=== PATIENT | female | born 1940 | race Hispanic/Latino ===

== ENCOUNTER → 2020-05-22 | Outpatient (RCR) | payer MEDICARE | LOC: PT 05-02 14:48 | PROVIDERS: ATTEND Specialist | DX: M25.562 Pain in left knee (principal); M17.12 Unilateral primary osteoarthritis, left knee ==

== ENCOUNTER 2020-06-15 09:00 | Outpatient (RCR) | payer MEDICARE | END 2020-06-21 | LOC: PT 09:00 | PROVIDERS: ATTEND Specialist | DX: M25.562 Pain in left knee (principal); M17.12 Unilateral primary osteoarthritis, left knee; R26.2 Difficulty in walking, not elsewhere classified | CPT/HCPCS: 97139 ==

== ENCOUNTER 2020-07-04 11:00 | Outpatient (RCR) | payer MEDICARE | END 2020-07-22 | LOC: PT 11:00 | PROVIDERS: ATTEND Specialist | DX: M25.562 Pain in left knee (principal); M17.12 Unilateral primary osteoarthritis, left knee; M62.81 Muscle weakness (generalized); R26.2 Difficulty in walking, not elsewhere classified | CPT/HCPCS: 97139 ==

== ENCOUNTER → 2022-06-25 | Day surgery (SDC) | payer MEDICARE ==
[2022-06-21 09:57] LABS: BASOPHILS # (AUTO) 0.1 (0.0-0.1); BASOPHILS % 0.6 % (0.0-1.0); EOSINOPHILS # (AUTO) 0.2 (0.0-0.4); EOSINOPHILS % 2.7 % (0.0-6.0); HEMATOCRIT 40.7 % (34.2-44.1); LYMPHOCYTES % 22.6 % (18.0-39.1); MEAN CORPUSCULAR HEMOGLOBIN 28.8 pg (28-32); MEAN CORPUSCULAR HGB CONC 29.5 g/dL (31-35); MEAN CORPUSCULAR VOLUME 97.6 fL (81-99); MONOCYTES # (AUTO) 0.8 (0.2-0.8); MONOCYTES % 8.5 % (4.4-11.3); NEUTROPHILS # (AUTO) 5.8 (2.1-6.9); NEUTROPHILS % 65.2 % (38.7-80.0); PLATELET COUNT 262 x10e3/uL (140-360); RED BLOOD COUNT 4.17 x10e6/uL (3.6-5.1); RED CELL DISTRIBUTION WIDTH 14.7 % (11.7-14.4)
[~2022-06-25] MED LIST: AMLODIPINE BESYL5 MG PO; AMOXICILLIN500 MG PO; ASPIRIN81 MG PO; ATORVASTATIN CA10 MG PO; BENICAR20 MG PO; BUPROPION HCL75 MG PO; CARVEDILOL12.5 MG PO; CLONIDINE PATCH; HYDROCHLOROTH12.5 MG PO; MIDAZOLAM HCL 2 MG/2 ML VIAL ONE; NEXIUM20 MG PO; OR PHACO EYE KIT ONE; POTA CHLORIDE PO; PREOP PHACO EYE KIT ONE; SYNJARDY 12.5-1 EACH PO
[2022-06-25 14:00] VITALS: BP 143/81
== END | disposition home or self-care (01) ==
LOC: OR 09:16
PROVIDERS: ATTEND Ophthalmology
DX: H25.12 Age-related nuclear cataract, left eye (principal); E11.9 Type 2 diabetes mellitus without complications; I11.0 Hypertensive heart disease with heart failure; I50.9 Heart failure, unspecified; K21.9 Gastro-esophageal reflux disease without esophagitis; Z01.812 Encounter for preprocedural laboratory examination; Z79.899 Other long term (current) drug therapy; Z95.810 Presence of automatic (implantable) cardiac defibrillator
CPT/HCPCS: 36415 ×2; 66984; 82948; 85025; J2250; V2632

== ENCOUNTER → 2022-07-23 | Day surgery (SDC) | payer MEDICARE ==
[~2022-07-23] MED LIST changes: -MIDAZOLAM HCL 2 MG/2 ML VIAL ONE
[2022-07-23 10:20] VITALS: BP 124/87
== END | disposition home or self-care (01) ==
LOC: OR 09:12
PROVIDERS: ATTEND Ophthalmology
DX: H25.11 Age-related nuclear cataract, right eye (principal); E11.9 Type 2 diabetes mellitus without complications; I10 Essential (primary) hypertension; E78.5 Hyperlipidemia, unspecified; Z01.810 Encounter for preprocedural cardiovascular examination; Z79.82 Long term (current) use of aspirin; Z79.899 Other long term (current) drug therapy; Z95.810 Presence of automatic (implantable) cardiac defibrillator
CPT/HCPCS: 36415; 66984; 82948; 93005; V2632